=== PATIENT | male | born 1940 | race Hispanic/Latino ===

== ENCOUNTER 2017-04-04 01:52 | Emergency (ER) | payer SELFPAY ==
[~2017-04-04] VITALS: Ht 172.7 cm; Wt 63.5 kg
[2017-04-04] MEDS ORDERED: DEXTROSE 5%/0.45% SOD CHL 1,000 ML IV ONE (02:15)
[2017-04-04 02:48] LABS: BASOPHILS % 0.3 % (0.0-1.0); EOSINOPHILS # (AUTO) 0.1 (0.0-0.4); HEMATOCRIT 28.7 % (38.2-49.6); HEMOGLOBIN 10.1 g/dL (14.0-18.0); LYMPHOCYTES # (AUTO) 1.5 (1.0-3.2); LYMPHOCYTES % 19.3 % (18.0-39.1); MEAN CORPUSCULAR HEMOGLOBIN 30.5 pg (28-32); MEAN CORPUSCULAR HGB CONC 35.2 g/dL (31-35); MEAN CORPUSCULAR VOLUME 86.7 fL (81-99); MONOCYTES # (AUTO) 0.4 (0.2-0.8); MONOCYTES % 5.6 % (4.4-11.3); NEUTROPHILS # (AUTO) 5.7 (2.1-6.9); NEUTROPHILS % 73.4 % (38.7-80.0); PLATELET COUNT 289 x10e3/uL (140-360); RED BLOOD COUNT 3.31 x10e6/uL (4.3-5.7); RED CELL DISTRIBUTION WIDTH 14.3 % (11.7-14.4)
[2017-04-04 03:03] LABS: ALBUMIN 3.2 g/dL (3.5-5.0); ANION GAP 13.9 mmol/L (8-16); CALCIUM 8.5 mg/dL (8.4-10.2); CREATININE, SERUM 2.29 mg/dL (0.72-1.25); POTASSIUM 3.9 mmol/L (3.5-5.1)
--- NOTE | 2017-04-04 03:41 | Diagnostic Imaging Report ---
EXAMINATION: CHEST SINGLE (PORTABLE) INDICATION: Shortness of breath COMPARISON: None FINDINGS: TUBES and LINES: None. LUNGS: Lungs are well inflated. Dystrophic calcification opacifying the right upper peripheral lung zone. There is no evidence of pneumonia or pulmonary edema. PLEURA: No pleural effusion or pneumothorax. HEART AND MEDIASTINUM: The cardiomediastinal silhouette is unremarkable. There are atherosclerotic calcifications within the aorta. Metallic density overlying the upper mediastinum. BONES AND SOFT TISSUES: No acute osseous lesion. Soft tissues are unremarkable. UPPER ABDOMEN: No free air under the diaphragm. IMPRESSION: 1. No acute thoracic abnormality. 2. Calcified nodularity/opacity in the right upper peripheral zone and probable with prior granulomatous disease. Signed by: Dr. Thomas Galaviz M.D. on 04/04/2017 3:38 AM
[2017-04-04] MEDS ORDERED: METFORMIN HCL850 MG PO (05:05)
[2017-04-04] MEDS ORDERED: LISINOPRIL10 MG PO (05:05)
[2017-04-04] MEDS ORDERED: GABAPENTIN600 MG PO (05:05)
[2017-04-04 05:26] VITALS: BP 147/75
== END 2017-04-04 05:45 | disposition home or self-care (01) ==
LOC: ER 01:52
DX: E11.649 Type 2 diabetes mellitus with hypoglycemia without coma (principal); T68.XXXA Hypothermia, initial encounter; I10 Essential (primary) hypertension; G62.9 Polyneuropathy, unspecified
CPT/HCPCS: 36415; 71010; 80053; 82948; 83605; 85025; 93005; 99284